=== PATIENT | male | born 1935 | race Caucasian/White ===

== ENCOUNTER 2016-07-14 11:48 | Emergency (ER) | payer OTHER ==
[2016-07-14] MEDS ORDERED: SODIUM CHLORIDE 0.9% 1,000 ML ONE (17:36)
== END 2016-07-14 20:58 | disposition home or self-care (01) ==
LOC: ER 11:48
DX: K59.00 Constipation, unspecified (principal); I71.4 Abdominal aortic aneurysm, without rupture; I74.5 Embolism and thrombosis of iliac artery
CPT/HCPCS: 36415; 71010; 74022; 74177; 80053; 81003; 83690; 85025; 96360; 96361